=== PATIENT | male | born 2000 | race Caucasian/White ===

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

== ENCOUNTER 2022-11-15 23:39 | Emergency (ER) | payer OTHER ==
[2022-11-15 23:43] VITALS: BP 117/70; PULSE 71; RESP 18; TEMP 98.9; BMI 22.4
[2022-11-16] MEDS ORDERED: predniSONE 20 MG TABLET (UD) PO ONE (00:31)
[2022-11-16] MEDS ORDERED: ACETAMINOPHEN 500 MG TABLET (FP) PO ONE (00:32)
[2022-11-16] MEDS ORDERED: AMOXICILLIN 500 MG CAPSULE (FP) PO ONE (00:32)
[2022-11-16] MEDS ORDERED: AMOXICILLIN 250 MG CAPSULE ONE (00:34)
[2022-11-16] MEDS ORDERED: ACETAMINOPHEN 500 MG TABLET (FP) ONE (00:34)
[2022-11-16] MEDS ORDERED: predniSONE 20 MG TABLET (UD) ONE (00:35)
== END 2022-11-16 00:40 | disposition home or self-care (01) ==
LOC: JERFT 23:39
DX: H92.03 Otalgia, bilateral (principal); R09.81 Nasal congestion; H66.003 Acute suppurative otitis media without spontaneous rupture of ear drum, bilateral
CPT/HCPCS: 99283-25